=== PATIENT | male | born 1995 | race Caucasian/White ===

== ENCOUNTER 2017-10-11 00:31 | Emergency (ER) | payer MEDICAID ==
[~2017-10-11] VITALS: Ht 165.1 cm; Wt 113.6 kg
[2017-10-11] MEDS ORDERED: PROMETHAZINE HCL 25 MG/ML VIAL IM ONE (02:00)
[2017-10-11 03:57] VITALS: BP 142/82
== END 2017-10-11 04:34 | disposition short-term general hospital (02) ==
LOC: EMS 00:33
DX: S01.111A Laceration without foreign body of right eyelid and periocular area, initial encounter (principal); S05.8X1A Other injuries of right eye and orbit, initial encounter; Y04.0XXA Assault by unarmed brawl or fight, initial encounter; Y93.89 Activity, other specified; Y92.89 Other specified places as the place of occurrence of the external cause; Y99.8 Other external cause status
CPT/HCPCS: 70450; 70486; 96372; 99285; J2550